=== PATIENT | female | born 1950 | race Caucasian/White ===

== ENCOUNTER 2019-05-18 13:52 | Emergency (ER) | payer MEDICARE, OTHER ==
[2019-05-18 15:40] VITALS: BP 120/81
--- NOTE | 2019-05-18 16:10 | UC ---
Skin Complaint HPI - HPI Summary HPI Summary: 69-year-old woman comes in with a chief complaint of a skin lesion on the right lower leg. She has about 3 weeks ago. She was shaving and she shaved over something and it bled. She put direct pressure on bleeding stopped. Since that time she's noticed a raised area a centimeter in diameter. She pushes on it is mildly tender to palpation. Has not noticed any drainage from it. It's skin color did is not red black or blue. She has had a history of skin cancer in the past. She has an appointment with a cable installer repairer helper in June 2019. - History of Current Complaint Chief Complaint: UCSkin Time Seen by Provider: 05/18/19 15:53 Stated Complaint: RIGHT LEG SKIN CONCERN Pain Intensity: 0 - Allergy/Home Medications Allergies/Adverse Reactions: Allergies Allergy/AdvReac Type Severity Reaction Status Date / Time No Known Allergies Allergy Verified 05/18/19 15:40 Home Medications: Home Medications Cholecalciferol TAB* [Vitamin D TAB*] 2,000 units PO DAILY 05/18/19 [History Confirmed 05/18/19] PMH/Surg Hx/FS Hx/Imm Hx Previously Healthy: Yes - MELANOMA,BASAL CELL CA - Surgical History Surgical History: None - Family History Known Family History: Positive: Non-Contributory - Social History Alcohol Use: Occasionally Substance Use Type: None Smoking Status (MU): Never Smoked Tobacco Review of Systems All Other Systems Reviewed And Are Negative: Yes Constitutional: Positive: Negative Skin: Positive: Other - SEE HPI Eyes: Positive: Negative ENT: Positive: Negative Respiratory: Positive: Negative Cardiovascular: Positive: Negative Gastrointestinal: Positive: Negative Motor: Positive: Negative Neurovascular: Positive: Negative Musculoskeletal: Positive: Negative Neurological: Positive: Negative Psychological: Positive: Negative Is Patient Immunocompromised?: No Physical Exam Triage Information Reviewed: Yes Appearance: Well-Appearing, No Pain Distress, Well-Nourished Vital Signs: Initial Vital Signs Temp 99 F 05/18/19 15:36 Pulse 72 05/18/19 15:36 Resp 16 05/18/19 15:36 BP 120/81 05/18/19 15:36 Pulse Ox 99 05/18/19 15:36 Vital Signs Reviewed: Yes Eye Exam: Normal Eyes: Positive: Conjunctiva Clear Neck: Positive: Supple Respiratory: Positive: No respiratory distress Musculoskeletal: Positive: Strength Intact, ROM Intact Neurological: Positive: Alert, Muscle Tone Normal Psychological: Positive: Age Appropriate Behavior Skin: Positive: Other - On the right lower leg there is a 1 cm raised rough circular skin lesion. It's skin colored without any extra pigmentation. There is no black no red no blue. It slightly rough in texture. Course/Dx - Course Course Of Treatment: Because the skin lesion does not have any pigmentation I do not suspect melanoma. At this time the patient would like to try a trial of antibiotics to see if it gets better. Otherwise she'll be following up dermatology. I did give HER-2 additional possible local cable installer repairer helper to attempt to follow-up with sooner than June. Patient she get reevaluated sooner if worse or any questions or concerns. - Diagnoses Provider Diagnosis: Skin lesion of right lower extremity Discharge - Sign-Out/Discharge Documenting (check all that apply): Patient Departure All imaging exams completed and their final reports reviewed: No Studies - Discharge Plan Condition: Stable Disposition: HOME Prescriptions: Cephalexin CAP* [Keflex CAP*] 500 mg PO TID #21 cap Patient Education Materials: Acute Rash (ED) Referrals: Lele Headley MD [Medical Doctor] - Clarisa Epperson [Medical Doctor] - Additional Instructions: FOLLOW UP WITH YOUR DERMATOLOGY. GET REEVALUATED SOONER IF WORSE OR ANY QUESTIONS OR CONCERNS. - Billing Disposition and Condition Condition: STABLE Disposition: Home
== END 2019-05-18 16:15 | disposition home or self-care (01) ==
LOC: UCCORT 13:52
DX: L98.9 Disorder of the skin and subcutaneous tissue, unspecified (principal); Z85.820 Personal history of malignant melanoma of skin
CPT/HCPCS: 99202; G0463